=== PATIENT | female | born 1965 | race Caucasian/White ===

== ENCOUNTER 2016-09-02 03:38 | Emergency (ER) | payer OTHER ==
[~2016-09-02] VITALS: Ht 162.6 cm; Wt 114.3 kg
[~2016-09-02 03:38] MED LIST: AMOXICILLIN500 M1 PO; AMOXICILLIN500 MG PO; FERROUS SULFAT325 MG PO; IRON325 MG PO; LISINOPRIL10 MG PO; LISINOPRIL20 MG PO; MOTRIN400 MG PO; NAPROSYN500 MG PO; PERIDEX1 ML MM; ROBITUSSIN AC,T10 ML PO; TRAMADOL HCL50 MG PO; ZOFRAN4 MG PO
[2016-09-02 04:27] LABS: HEMATOCRIT 35.1 % (36.0-46.0); MCH 31.4 PG (29.0-34.0); MCHC 34.8 G/DL (30.0-36.0); MCV 90.2 FL (83-99); MEAN PLAT.VOLUME 10.3 uM^3 (9.5-12.4); PLATELET COUNT 229 K/uL (156-360); RBC DIS.WIDTH-CV 11.6 % (11.8-14.6); RBC DIS.WIDTH-SD 37.2 % (39-53); RED BLOOD COUNT 3.89 M/uL (3.80-5.20); WHITE BLOOD COUNT 6.1 K/uL (4.1-10.2)
[2016-09-02 04:37] LABS: CHLORIDE 105 mEq/L (99-109); POTASSIUM 3.8 mEq/L (3.7-5.4); SODIUM 138 mEq/L (136-147)
[2016-09-02 04:39] LABS: GLUCOSE 142 mg/dL (70-99)
[2016-09-02 04:40] LABS: ANION GAP 10 MEQ/L (2-14)
[2016-09-02 04:43] LABS: GFR ESTIMATE (CALCULATED) > 59 mL/min/
[2016-09-02 04:44] LABS: UREA NITROGEN (BUN) 21 mg/dL (9-23)
[2016-09-02 04:46] LABS: TROP-I INTERPRETATION NEGATIVE; TROPONIN-I < 0.01 ng/mL (0.0-0.30)
[2016-09-02 06:08] LABS: TROP-I INTERPRETATION NEGATIVE; TROPONIN-I < 0.01 ng/mL (0.0-0.30)
[2016-09-02 06:40] VITALS: BP 105/60
== END 2016-09-02 06:42 | disposition home or self-care (01) ==
LOC: EME 03:38
PROVIDERS: Emergency Medicine
DX: M25.512 Pain in left shoulder (principal); I10 Essential (primary) hypertension; R07.89 Other chest pain
CPT/HCPCS: 71020; 80048; 84484; 85027; 93005; 99281; 99284

== ENCOUNTER 2017-03-18 22:12 | Emergency (ER) | payer OTHER ==
[~2017-03-18] VITALS: Ht 165.1 cm; Wt 114.9 kg
[2017-03-19] MEDS ORDERED: PEPCID20 MG PO (01:50)
[2017-03-19 02:18] VITALS: BP 151/81
== END 2017-03-19 02:20 | disposition home or self-care (01) ==
LOC: EXP 22:12 → EME 22:12 → EXP 03-19 02:20
DX: T78.3XXA Angioneurotic edema, initial encounter (principal); I10 Essential (primary) hypertension
CPT/HCPCS: 99281; 99284; J8540

== ENCOUNTER 2017-06-03 13:36 | Emergency (ER) | payer OTHER ==
[~2017-06-03] VITALS: Ht 162.6 cm; Wt 116.3 kg
[~2017-06-03 13:36] MED LIST changes: +PEPCID20 MG PO
[2017-06-03 13:50] VITALS: BP 161/93
[2017-06-03] MEDS ORDERED: MOTRIN800 MG PO (18:29)
[2017-06-03] MEDS ORDERED: NORCO 10/3251 TABLET PO (18:29)
[2017-06-03] MEDS ORDERED: VALIUM2 MG PO (18:29)
== END 2017-06-03 15:24 | disposition left against medical advice (07) ==
LOC: EME 13:36
DX: M25.512 Pain in left shoulder (principal); Z53.21 Procedure and treatment not carried out due to patient leaving prior to being seen by health care provider

== ENCOUNTER 2017-06-03 16:00 | Emergency (ER) | payer OTHER ==
[~2017-06-03] VITALS: Ht 162.6 cm; Wt 116.3 kg
[2017-06-03] MEDS ORDERED: MOTRIN800 MG PO (18:29)
[2017-06-03] MEDS ORDERED: NORCO 10/3251 TABLET PO (18:29)
[2017-06-03] MEDS ORDERED: VALIUM2 MG PO (18:29)
[2017-06-03 18:59] VITALS: BP 161/93
== END 2017-06-03 19:01 | disposition home or self-care (01) ==
LOC: EME 16:00
DX: S46.912A Strain of unspecified muscle, fascia and tendon at shoulder and upper arm level, left arm, initial encounter (principal); M54.12 Radiculopathy, cervical region; M62.838 Other muscle spasm; X50.0XXA Overexertion from strenuous movement or load, initial encounter; Y93.E9 Activity, other interior property and clothing maintenance; Y92.009 Unspecified place in unspecified non-institutional (private) residence as the place of occurrence of the external cause
CPT/HCPCS: 99281; 99283